=== PATIENT | female | born 1960 | race Caucasian/White ===

== ENCOUNTER → 2021-05-03 | Outpatient (CLI) | payer OTHER, SELFPAY | END | disposition home or self-care (01) | PROVIDERS: Visit Provider Nurse Practitioner | DX: N30.90 Cystitis, unspecified without hematuria (principal) | CPT/HCPCS: 87086; 87088 ==

== ENCOUNTER → 2023-05-01 | Outpatient (CLI) | payer OTHER, SELFPAY ==
--- NOTE | 2023-05-01 08:37 | RAD_ITS ---
STUDY: X-RAY - RIGHT HAND REASON FOR EXAM: Female, 62 years old. Pain and stiffness TECHNIQUE: view(s) of the hand. COMPARISON: None. FINDINGS: Normal radiocarpal articulation. Normal distal radioulnar joint. Normal visualized carpal bones. Normal carpal articulations Normal carpometacarpal articulation of the thumb. Normal second through fifth carpometacarpal joints. Normal metacarpi. Normal metacarpophalangeal joint of the thumb. Normal interphalangeal joint of the thumb. Normal proximal and distal phalanges of the thumb. Normal metacarpophalangeal joints of the second through fifth fingers. Normal proximal and distal interphalangeal joints of the second through fifth fingers. Normal phalanges of the second through fifth fingers. The soft tissue structures are unremarkable. RAD/Hand Min 3 Views IMPRESSION: Normal x-ray examination of the hand. Electronically Signed: Demetrio Lynch MD at 14:39 EDT ,
--- NOTE | 2023-05-01 08:40 | RAD_ITS ---
STUDY: X-RAY - LEFT HAND REASON FOR EXAM: Female, 62 years old. ARTHRITIS TECHNIQUE: 3 view(s) of the hand. COMPARISON: None. FINDINGS: There is an expansile lesion in the proximal medial aspect of the middle phalanx of the third digit likely in a chondroma, no demonstrated fracture Normal radiocarpal articulation. Normal distal radioulnar joint. Normal visualized carpal bones. Normal carpal articulations Normal carpometacarpal articulation of the thumb. Normal second through fifth carpometacarpal joints. Normal metacarpi. Normal metacarpophalangeal joint of the thumb. Normal interphalangeal joint of the thumb. Normal proximal and distal phalanges of the thumb. Normal metacarpophalangeal joints of the second through fifth fingers. Normal proximal and distal interphalangeal joints of the second through fifth fingers. Normal remaining phalanges of the second through fifth fingers. The soft tissue structures are unremarkable. RAD/Hand Min 3 Views IMPRESSION: No fracture suspicious osseous lesion. Joint spaces well-preserved. 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
== END | disposition home or self-care (01) ==
PROVIDERS: Referring Provider Internal Medicine Rheumatology; Visit Provider Internal Medicine Rheumatology
DX: M06.4 Inflammatory polyarthropathy (principal)
CPT/HCPCS: 73130

== ENCOUNTER 2023-10-22 18:37 | Emergency (ER) | payer OTHER, SELFPAY ==
[2023-10-22 18:37] VITALS: BP 144/96; PULSE 86; RESP 14; TEMP 35.9; O2SAT 96
--- NOTE | 2023-10-22 18:50 | RAD_ITS ---
STUDY: X-RAY - RIGHT ANKLE REASON FOR EXAM: Female, 62 years old. FALL TECHNIQUE: 3 view(s) of the ankle. COMPARISON: None. FINDINGS: Normal visualized distal tibia and fibula. Normal medial and lateral malleoli. Normal tibiotalar articulation and ankle mortise. Normal visualized talus. There is a small plantar calcaneal spur and posterior enthesophyte The visualized subtalar, talonavicular, calcaneocuboid and tarsal articulations are normal. Soft tissue swelling overlying the lateral malleolus. There are joint mice noted bilaterally most likely due to old trauma. Cannot definitively exclude recurrent acute fracture of the distal fibula.. This may be further assessed with CAT scan if clinically warranted RAD/Ankle min 3 Views IMPRESSION: Bilateral malleolus sprain. Bilateral joint mice likely due to old trauma however cannot definitively exclude recurrent acute fracture of the distal fibula. Electronically Signed: Tiago Atkins MD at 19:08 EDT ,
--- NOTE | 2023-10-22 20:39 | ED.VIS.LOWEX ---
HPI History of Present Illness Chief Complaint: Lower Extremity Injury Detail of Chief Complaint: Injury right ankle due to fall Informant: patient Occured/Mechanism Mechanism/Context: Yes injury and Yes blunt trauma Onset/Context/Timing Onset: Today and Hours Context: Sudden Onset Timing: Continuous Quality of Pain: Dull and Aching Location: Right ankle Current Severity: Mild Maximum Severity: Moderate Worsened by: Movement, palpation and weightbearing Relieved by: Nothing Associated Symptoms Associated Symptoms: Negative for Parasthesia, Weakness or Loss of Funtion Narrative Narrative: Patient is a 62-year-old woman. She presents with injury to her right ankle. She had a fall with a twisting mechanism injury. She complains of pain over the lateral malleolus. There is swelling over the lateral malleolus. She denies paresthesia, anesthesia medics. Denies prior injury. Prior similar symptoms: No Recent Illness/Hospitalization: No PFSH PFSH Medical History Ectopic Home Medications hydrocodone-acetaminophen 5-325mg 5mg-325mg 1 tab PO Q6H PRN PRN Pain 3 days #10 TABLETS 10/22/23 [Rx Last Taken Unknown] Allergy/AdvReac Type Severity Reaction Status Date / Time clarithromycin [From Biaxin] Allergy Severe increase Verified 10/22/23 18:42 ansiety and sees bugs on the weiss levofloxacin [From Levaquin] Allergy Severe itches all Verified 10/22/23 18:42 over sulfamethoxazole Allergy Severe increase Verified 10/22/23 18:42 [From Bactrim] in anxiety and sees bugs trimethoprim [From Bactrim] Allergy Severe increase Verified 10/22/23 18:42 in anxiety and sees bugs ROS ROS ED Musculoskeletal Musculoskeletal: Reports other Integumentary Denies Abrasions or rash Neurologic Neurologic: Denies paresthesias or weakness Hematologic/Lymphatic Hematologic/Lymphatic: Denies easy bleeding or easy bruising EXAM Physical Exam Const Vital Signs: 10/22/23 18:37 Temperature 96.6 F L Temperature Source Temporal Pulse Rate 86 Respiratory Rate 14 Blood Pressure 144/96 H Blood Pressure Mean 112 Pulse Ox 96 Oxygen Delivery Method Room Air Positive well nourished and well developed General Appearance ED: well developed and NAD HEENT normocephalic and atraumatic Resp normal respiratory effort Cardio regular rate and regular rhythm Extremity full ROM; Negative for normal to inspection Extremity Narrative: There is no pain ovation along the joint line of the knee. Is no pain the patient with the fibular head. There is soft tissue swelling with tenderness over the distal aspect of the lateral malleolus. There is no pain the patient posteriorly. There is no pain the patient of the medial malleolus. There is no laxity with drawer testing. DP and PT pulse are palpable. There is no pain ovation of the base of the fifth metatarsal. There is no laxity with anterior drawer test. Neuro oriented x3, CN's II-XII intact bilaterally and moves all extremities Skin no wounds Skin Narrative: Hematoma over the lateral malleolus Lesions: no lesions Rashes: no rashes MDM MDM MDM Narrative Medical decision making narrative: X-ray was obtained to evaluate for fracture versus sprain. Radiography Chest X-Ray - ED: Read by ED Physician (Three-view x-ray reveals soft tissue swelling. There is evidence of prior pilon fracture lateral malleolus. There is also significant degenerative changes. There is no acute fracture appreciated per my interpretation.) Diagnostic Testing: Clinical Impression(s) from Imaging Studies Ankle X-Ray 10/22/23 18:50 IMPRESSION: Bilateral malleolus sprain. Bilateral joint mice likely due to old trauma however cannot definitively exclude recurrent acute fracture of the distal fibula. Electronically Signed: Tiago Atkins MD at 19:08 EDT Reading Location ID and State: [address] [place] [address] Tel , Service support , Radiology read was reviewed. Treatment and Re-Evaluation Narrative: Patient was informed that she has no fracture. She was treated with an Aircast. She is to draw the alphabet with her foot 6 times a day. She was discharged with pain medicine. Discharge Plan Triage Chief Complaint: Lower Extremity Injury ED Provider: Ashutosh Turpin Dx/Rx/DC Orders Clinical Impression: Sprain of anterior talofibular ligament of right ankle, Loose body in ankle and foot joint Instructions: Ankle Dorsiflexion (Strength), Ankle Inversion (Strength), ED Ankle Sprain (Adult) Prescriptions: New hydrocodone-acetaminophen [hydrocodone-acetaminophen] 5-325 mg tablet 1 tab PO Q6H PRN PRN (Reason: Pain) 3 Days Qty: 10 0RF Primary Care Provider: PEBBLES STAFFORD Referrals: PEBBLES STAFFORD [Other] - 1 Week if not improving Activity Restrictions/Additional Instructions: 1. Apply ice to your ankle 6-10 times a day. 2. Remove the splint to draw the alphabet with your foot 4-6 times a day 3. Wear the air splint for the next 1 to 2 weeks or until pain-free 4. Wear flat shoes. Disposition Disposition: Home, Self Care
[2023-10-22 21:09] VITALS: BP 136/89; PULSE 90; RESP 18; TEMP 37.1; O2SAT 100
== END 2023-10-22 21:10 | disposition home or self-care (01) ==
LOC: ED 20:54
PROVIDERS: Emergency Provider Emergency Medicine; Visit Provider Emergency Medicine
DX: S93.491A Sprain of other ligament of right ankle, initial encounter (principal); W19.XXXA Unspecified fall, initial encounter; M24.0 Loose body in joint
CPT/HCPCS: 73610; 99283